=== PATIENT | male | born 1945 | race Caucasian/White ===

== ENCOUNTER 2017-06-05 02:51 | Inpatient (IN) | payer MEDICARE, OTHER ==
[2017-06-05] MEDS ORDERED: OXYCODONE-ACETAMINOPHEN 5-325 MG TABLET PO ONE (03:59)
--- NOTE | 2017-06-05 04:00 | ER Document Report ---
ED GI/ - General Chief Complaint: Flank Pain Stated Complaint: FLANK PAIN Time Seen by Provider: 06/05/17 03:54 Mode of Arrival: Ambulatory Information source: Patient Notes: Patient presents complaining of left flank pain that started yesterday. Patient states the pain radiates around to his left side of his abdomen. Patient states that yesterday the pain was intermittent but became constant today. Patient has a history kidney stones in the past and suspects the same today. Patient denies any fever. Patient does report nausea but denies any vomiting or diarrhea. TRAVEL OUTSIDE OF THE [place] IN LAST 30 DAYS: No - HPI Patient complains to provider of: Abdominal pain, Flank pain. No: Vomiting Onset: Yesterday Timing/Duration: Persistent, Worse Quality of pain: Sharp Pain Level: 5 Location: LLQ, Left flank Associated symptoms: Nausea. denies: Diarrhea, Dizzy, Urinary hesitancy, Urinary frequency, Urinary retention, Urinary urgency, Vomiting Exacerbated by: Denies Relieved by: Denies Similar symptoms previously: Yes Recently seen / treated by doctor: No - Related Data Allergies/Adverse Reactions: No Known Allergies Allergy (Unverified 06/05/17 07:29) Past Medical History - General Information source: Patient - Social History Smoking Status: Former Smoker Frequency of alcohol use: Occasional Drug Abuse: None Lives with: Spouse/Significant other Family History: Reviewed & Not Pertinent Patient has suicidal ideation: No Patient has homicidal ideation: No - Medical History Medical History: Other - Yet to be diagnosed mass right side of abdomen - Past Medical History Cardiac Medical History: Reports: Hx Peripheral Vascular Disease Endocrine Medical History: Reports: Hx Diabetes Mellitus Type 2 Renal/ Medical History: Reports: Hx Kidney Stones. Denies: Hx Peritoneal Dialysis Musculoskeltal Medical History: Reports Other - Chronic back pain Past Surgical History: Reports: Hx Orthopedic Surgery, Hx Vascular Surgery Review of Systems - Review of Systems Constitutional: No symptoms reported. denies: Fever, Recent illness EENT: No symptoms reported Cardiovascular: No symptoms reported Respiratory: No symptoms reported. denies: Cough, Short of breath Gastrointestinal: Abdominal pain, Nausea. denies: Diarrhea, Vomiting Genitourinary: Flank pain. denies: Dysuria, Hematuria Male Genitourinary: No symptoms reported Musculoskeletal: Back pain Skin: No symptoms reported Hematologic/Lymphatic: No symptoms reported Neurological/Psychological: No symptoms reported Physical Exam - Vital signs Vitals: Temp Pulse Resp BP Pulse Ox 97.7 F 66 22 H 163/90 H 98 06/05/17 02:52 06/05/17 02:52 06/05/17 02:52 06/05/17 02:52 06/05/17 02:52 - General General appearance: Appears well, Alert In distress: None - HEENT Head: Normocephalic Eyes: Normal Nasal: Normal Mouth/Lips: Normal Pharynx: Normal Neck: Normal. No: Lymphadenopathy - Respiratory Respiratory status: No respiratory distress Chest status: Nontender Breath sounds: Normal Chest palpation: Normal - Cardiovascular Rhythm: Regular Heart sounds: S1 appreciated, S2 appreciated Murmur: No - Abdominal Inspection: Obese Distension: No distension Bowel sounds: Normal Tenderness: Tender - LLQ pain. No: Guarding Organomegaly: No organomegaly - Back Back: CVA tenderness - left - Extremities General upper extremity: Normal inspection, Normal ROM General lower extremity: Normal inspection, Normal ROM - Neurological Neuro grossly intact: Yes Cognition: Normal Jm Coma Scale Eye Opening: Spontaneous [place] Coma Scale Verbal: Oriented [place] Coma Scale Motor: Obeys Commands Jm Coma Scale Total: 15 - Psychological Associated symptoms: Normal affect, Normal mood - Skin Skin Temperature: Warm Skin Moisture: Dry Skin Color: Normal Course - Re-evaluation Re-evalutation: 06/05/17 05:39 Patient complains of continued flank and abdominal pain, additional medication ordered. 06/05/17 06:[address] Wong who advises having patient admitted to the hospitalist services and starting patient on a broad-spectrum antibiotic and having patient remain n.p.o. as he will likely take patient to surgery later today. Consulted with Dr. Reid who agrees to accept patient for admission. Dr. Reid advises having patient admitted to telemetry unit and giving the patient a dose of Rocephin at this time. Reviewed patient's current vital signs with Dr. Reid. Patient's temperature 97.8, respiratory rate 18, heart rate 64, 95%, 174/71. Patient updated regarding plan of care and is agreeable at this time. - Vital Signs Vital signs: Temp Pulse Resp BP Pulse Ox 97.7 F 66 22 H 163/90 H 98 06/05/17 02:52 06/05/17 02:52 06/05/17 02:52 06/05/17 02:52 06/05/17 02:52 - Laboratory Result Diagrams: 06/05/17 03:30 06/05/17 03:30 Laboratory results interpreted by me: 06/05/17 06/05/17 06/05/17 03:30 03:30 05:16 WBC 12.8 H Seg Neutrophils % 89.0 H Lymphocytes % 6.9 L Absolute Neutrophils 11.4 H Sodium 136.6 L BUN 28 H Creatinine 1.56 H Est GFR ( Amer) 54 L Est GFR (Non-Af Amer) 44 L Glucose 558 H* Direct Bilirubin 0.5 H Alkaline Phosphatase 130 H Urine Glucose (UA) >=500 H Urine Blood LARGE H Labs- Entire Visit 06/05/17 06/05/17 06/05/17 03:30 03:30 05:16 WBC 12.8 H RBC 4.62 Hgb 13.8 Hct 41.4 MCV 90 MCH 29.8 MCHC 33.3 RDW 13.7 Plt Count 183 Seg Neutrophils % 89.0 H Lymphocytes % 6.9 L Monocytes % 3.8 Eosinophils % 0.0 Basophils % 0.3 Absolute Neutrophils 11.4 H Absolute Lymphocytes 0.9 Absolute Monocytes 0.5 Absolute Eosinophils 0.0 Absolute Basophils 0.0 Sodium 136.6 L Potassium 4.9 Chloride 98 Carbon Dioxide 23 Anion Gap 16 BUN 28 H Creatinine 1.56 H Est GFR ( Amer) 54 L Est GFR (Non-Af Amer) 44 L Glucose 558 H* Calcium 10.0 Total Bilirubin 0.5 Direct Bilirubin 0.5 H Neonat Total Bilirubin Not Reportable Neonat Direct Bilirubin Not Reportable Neonat Indirect Bili Not Reportable AST 21 ALT 43 Alkaline Phosphatase 130 H Total Protein 6.4 Albumin 3.9 Urine Color STRAW Urine Appearance CLEAR Urine pH 5.0 Ur Specific [place] 1.024 Urine Protein NEGATIVE Urine Glucose (UA) >=500 H Urine Ketones NEGATIVE Urine Blood LARGE H Urine Nitrite NEGATIVE Urine Bilirubin NEGATIVE Urine Urobilinogen NEGATIVE Ur Leukocyte Esterase NEGATIVE Urine WBC (Auto) 1 Urine RBC (Auto) 7 Squamous Epi Cells Auto <1 Urine Mucus (Auto) RARE Urine Ascorbic Acid NEGATIVE - Diagnostic Test Radiology reviewed: Reports reviewed Discharge - Discharge Clinical Impression: Ureteral stone, Flank pain, Hyperglycemia, right renal lesion Condition: Fair Disposition: ADMITTED INPATIENT Admitting Provider: Hospitalist Unit Admitted: Telemetry
[2017-06-05 04:09] LABS: ABSOLUTE LYMPHOCYTES (AUTO) 0.9 10^3/uL (0.5-4.7); ABSOLUTE MONOCYTES (AUTO) 0.5 10^3/uL (0.1-1.4); ABSOLUTE NEUT (AUTO) 11.4 10^3/uL (1.7-8.2); BASOPHILS % (AUTO) 0.3 % (0-2); HEMATOCRIT 41.4 % (37.9-51.0); HEMOGLOBIN 13.8 g/dL (13.5-17.0); LYMPHOCYTES % (AUTO) 6.9 % (13-45); MEAN CORPUSCULAR HEMOGLOBIN 29.8 pg (27.0-33.4); MEAN CORPUSCULAR HGB CONC 33.3 g/dL (32.0-36.0); MEAN CORPUSCULAR VOLUME 90 fl (80-97); MONOCYTES % (AUTO) 3.8 % (3-13); PLATELET COUNT 183 10^3/uL (150-450); RED BLOOD COUNT 4.62 10^6/uL (4.35-5.55); RED CELL DISTRIBUTION WIDTH 13.7 % (11.5-14.0); TOTAL CELLS COUNTED % (AUTO) 100 %; WHITE BLOOD COUNT 12.8 10^3/uL (4.0-10.5)
[2017-06-05 04:17] LABS: ALANINE AMINOTRANSFERASE 43 U/L (21-72); ALBUMIN 3.9 g/dL (3.5-5.0); ALKALINE PHOSPHATASE 130 U/L (38-126); ANION GAP 16 (5-19); ASPARTATE AMINO TRANSFERASE 21 U/L (17-59); BILIRUBIN,DIRECT 0.5 mg/dL (0.0-0.4); BILIRUBIN,TOTAL 0.5 mg/dL (0.2-1.3); BLOOD UREA NITROGEN 28 mg/dL (7-20); CARBON DIOXIDE 23 mmol/L (22-30); CHLORIDE 98 mmol/L (98-107); POTASSIUM 4.9 mmol/L (3.6-5.0); SODIUM 136.6 mmol/L (137-145); TOTAL PROTEIN 6.4 g/dL (6.3-8.2)
[2017-06-05] MEDS ORDERED: MORPHINE SULFATE 10 MG/ML INJ IV ONE ×2 (04:22→05:39)
[2017-06-05] MEDS ORDERED: ONDANSETRON HCL INJ/PF 4 MG/2 ML SDV IV ONE (04:22)
[2017-06-05 04:29] LABS: GLUCOSE 558 mg/dL (75-110)
--- NOTE | 2017-06-05 04:46 | RADIOLOGY REPORT (SQ) ---
EXAM DESCRIPTION: CT LTD RENAL STONE PROTOCOL ON CLINICAL HISTORY: 71 years Male, left flank, LLQ pain COMPARISON: December 24, 2015 TECHNIQUE: No contrast. Coronal and sagittal reformat. This exam was performed according to our departmental dose-optimization program, which includes automated exposure control, adjustment of the mA and/or kV according to patient size and/or use of iterative reconstruction technique. FINDINGS: 0.9 x 0.9 x 0.6 cm, 957 HU,, left mid ureteral stone at the L4 level with severe left hydroureter and moderate left hydronephrosis. Moderate left perinephric fat stranding. Additional bilateral nephrolithiasis measures up to 0.5 cm on the left. Indeterminate 2.1 cm, 49 HU exophytic rounded lesion at the upper pole of the right kidney probably due to a hemorrhagic cyst although other neoplastic processes cannot be excluded. Further evaluation with multiphase contrast CT or MRI recommended. Colonic diverticulosis. Small coronary arterial calcification. Moderate L5-S1 vacuum disc desiccation. Atherosclerosis. 0.3 cm degenerative L5 anterolisthesis. Moderate L5-S1 vacuum disc bulge-osteophyte complex with moderate bilateral L5 foraminal stenosis. Unenhanced inferior chest, abdominopelvic structures, and musculoskeleton appear otherwise grossly unremarkable. Impression: 1. A 0.9 cm left mid ureteral stone with moderate grade obstruction. 2. Indeterminate 2.1 cm right renal lesion; multiphase contrast CT or MRI recommended.
[2017-06-05] MEDS ORDERED: NORMAL SALINE 1000 ML 1,000 ML IV ONE (05:06)
[2017-06-05] MEDS ORDERED: INSULIN REG, HUMAN 100 UNIT/ML 3 ML VIAL (PYX) SUBCUT ONE (05:06)
[2017-06-05 05:41] LABS: APPEARANCE,URINE CLEAR; BILIRUBIN,URINE NEGATIVE (NEGATIVE); COLOR,URINE STRAW; GLUCOSE, URINE >=500 mg/dL (NEGATIVE); KETONES,URINE NEGATIVE (NEGATIVE); LEUKOCYTE ESTERASE,URINE NEGATIVE (NEGATIVE); NITRITE,URINE NEGATIVE (NEGATIVE); PROTEIN,URINE NEGATIVE (NEGATIVE); URINE SPECIFIC GRAVITY 1.024; UROBILINOGEN,URINE NEGATIVE mg/dL (<2.0)
[2017-06-05] MEDS ORDERED: CEFTRIAXONE INJ 1000 MG VIAL IV ONE (06:11)
[2017-06-05] MEDS ORDERED: INSULIN LISPRO 100 UNIT/ML 3 ML VIAL SUBCUT PRN (06:12)
[2017-06-05] MEDS ORDERED: ONDANSETRON HCL INJ/PF 4 MG/2 ML SDV IV PRN (06:12)
[2017-06-05] MEDS ORDERED: ACETAMINOPHEN 325 MG TABLET PO PRN (06:12)
[2017-06-05] MEDS ORDERED: DEXTROSE 40% GEL 15 GM TUBE PO PRN ×2 (06:12)
[2017-06-05] MEDS ORDERED: DEXTROSE 50%-WATER 25 GM/50 ML DISP.SYRIN IV PRN ×2 (06:12)
[2017-06-05] MEDS ORDERED: IPRATROPIUM/ALBUTEROL 0.5-2.5 MG/3 ML AMPUL NEB PRN (06:12)
[2017-06-05] MEDS ORDERED: MAG HYDROX/AL HYDROX/SIMETH SUSP 30 ML UDCUP PO PRN (06:12)
[2017-06-05] MEDS ORDERED: MAGNESIUM HYDROXIDE SUSP 30 ML UDCUP PO PRN (06:12)
[2017-06-05] MEDS ORDERED: GLUCAGON,HUMAN RECOMB 1 MG INJ IM PRN (06:12)
[2017-06-05] MEDS ORDERED: NORMAL SALINE 1000 ML 1,000 ML IV PRN ×2 (06:15→08:07)
[2017-06-05] MEDS ORDERED: HYDRALAZINE HCL INJ/PF 20 MG/1 ML SDV IV PRN (06:17)
[2017-06-05] MEDS ORDERED: KETOROLAC TROMETHAMINE INJ/PF 30 MG/1 ML SDV IV PRN (06:18)
--- NOTE | 2017-06-05 08:25 | PDOC H&P ---
History of Present Illness Admission Date/PCP: 06/05/17 06:21 DULCE HERNANDEZ MD Patient complains of: severe LLQ pain History of Present Illness: MEÑO DOUGLAS is a 71 year old male who presented to the ED with severe LLQ pain Pain is intermittent, severe radiates to left flank pain started 2 days ago , improved and recurred early this am Pain is similar to prior renal colics in past CT abdomen and pelvis performed in ED showed a 9 mm stone in left mid ureter and hydronephrosis Urology consult Dr Jasso was called and patient was admitted under Hospitalist service Past Medical History Cardiac Medical History: Reports: None Pulmonary Medical History: Reports: Sleep Apnea Endocrine Medical History: Reports: Diabetes Mellitus Type 2 Renal/ Medical History: Reports: Nephrolithiasis GI Medical History: Reports: Gastroesophageal Reflux Disease Musculoskeltal Medical History: Reports: Arthritis, Other - back pain carpal tunnel rt shoulder surgery Skin Medical History: Reports: None Psychiatric Medical History: Reports: None Hematology: Reports: None Infectious Medical History: Reports: None Past Surgical History Past Surgical History: Reports: Other - kidney stones Social History Information Source: Patient Lives with: Family Smoking Status: Former Smoker - stopped september 2016 Frequency of Alcohol Use: None Hx Recreational Drug Use: No Drugs: None - Advance Directive Resuscitation Status: Full Code Surrogate healthcare decision maker:: Mar Family History Parental Family History Reviewed: Yes - father cirrhosis Children Family History Reviewed: Yes Sibling(s) Family History Reviewed.: Yes - brother has kidney stones sister cancer Medication/Allergy Allergies/Adverse Reactions: No Known Allergies Allergy (Unverified 06/05/17 07:29) Review of Systems Constitutional: PRESENT: chills. ABSENT: as per HPI, anorexia, fatigue, fever(s ), headache(s), night sweats, weakness, weight gain, weight loss, other Respiratory: ABSENT: cough, hemoptysis Gastrointestinal: PRESENT: as per HPI, abdominal pain Genitourinary: ABSENT: dysuria, hematuria Musculoskeletal: ABSENT: joint swelling Neurological: ABSENT: abnormal gait, abnormal speech, confusion, dizziness, focal weakness, syncope Psychiatric: ABSENT: anxiety, depression, homidical ideation, suicidal ideation Endocrine: ABSENT: cold intolerance, heat intolerance, polydipsia, polyuria Hematologic/Lymphatic: ABSENT: easy bleeding, easy bruising Physical Exam Vital Signs: Temp Pulse Resp BP Pulse Ox 97.7 F 66 22 H 163/90 H 98 06/05/17 02:52 06/05/17 02:52 06/05/17 02:52 06/05/17 02:52 06/05/17 02:52 General appearance: PRESENT: mild distress - because of pain, well-developed, well-nourished Head exam: PRESENT: atraumatic, normocephalic Eye exam: PRESENT: conjunctiva pink, EOMI, PERRLA. ABSENT: scleral icterus Ear exam: PRESENT: normal external ear exam. ABSENT: bleeding, drainage, TM's normal bilaterally, other Mouth exam: PRESENT: moist, tongue midline Neck exam: ABSENT: carotid bruit, JVD, lymphadenopathy, thyromegaly Respiratory exam: PRESENT: clear to auscultation paula. ABSENT: rales, rhonchi, wheezes Cardiovascular exam: PRESENT: RRR. ABSENT: diastolic murmur, rubs, systolic murmur Pulses: PRESENT: normal dorsalis pedis pul Vascular exam: PRESENT: normal capillary refill GI/Abdominal exam: PRESENT: normal bowel sounds, soft, tenderness - left flank and LLQ. ABSENT: distended, guarding, mass, organolmegaly, rebound Rectal exam: PRESENT: deferred Extremities exam: PRESENT: full ROM. ABSENT: calf tenderness, clubbing, pedal edema Neurological exam: PRESENT: alert, awake, oriented to person, oriented to place , oriented to time, oriented to situation, CN II-XII grossly intact. ABSENT: motor sensory deficit Psychiatric exam: PRESENT: appropriate affect, normal mood. ABSENT: homicidal ideation, suicidal ideation Skin exam: PRESENT: dry, intact, warm. ABSENT: cyanosis, rash Results Laboratory Results: 06/05/17 06/05/17 06/05/17 03:30 03:30 05:16 WBC 12.8 H Hgb 13.8 Hct 41.4 Sodium 136.6 L Potassium 4.9 Chloride 98 Carbon Dioxide 23 BUN 28 H Creatinine 1.56 H Glucose 558 H* POC Glucose Urine pH 5.0 Ur Specific [place] 1.024 Urine Glucose (UA) >=500 H Urine Blood LARGE H 06/05/17 08:13 WBC Hgb Hct Sodium Potassium Chloride Carbon Dioxide BUN Creatinine Glucose POC Glucose 394 H Urine pH Ur Specific [place] Urine Glucose (UA) Urine Blood Assessment & Plan - Diagnosis (1) Renal colic on left side Is this a current diagnosis for this admission?: Yes Plan: treat pain with morphine Ceftriaxone IV urology consult Dr Jasso will be in - schedule for stent placement - (2) Hyperglycemia Is this a current diagnosis for this admission?: Yes Plan: intermittent doses regular insulin patient is NPO (3) Ureteral stone Is this a current diagnosis for this admission?: Yes (4) CKD stage 3 due to type 2 diabetes mellitus Is this a current diagnosis for this admission?: Yes Plan: hydrate - Time Time Spent with patient: admit patient to medical unit as inpatient Time Spent: 50 to 70 Minutes - Inpatient Certification Based on my medical assessment, after consideration of the patient's comorbidities, presenting symptoms, or acuity I expect that the services needed warrant INPATIENT care.: Yes I certify that my determination is in accordance with my understanding of Medicare's requirements for reasonable and necessary INPATIENT services [42 CFR 412.3e].: Yes Medical Necessity: Need For IV Fluids, Need for IV Antibiotics, Need for Surgery
[2017-06-05] MEDS ORDERED: INSULIN REG, HUMAN 100 UNIT/ML 3 ML VIAL (PYX) IV ONE ×2 (08:45→13:30)
--- NOTE | 2017-06-05 09:40 | EKG REPORT ---
SEVERITY:- ABNORMAL ECG - SINUS RHYTHM LAD, CONSIDER LEFT ANTERIOR FASCICULAR BLOCK EARLY PRECORDIAL TRANSITION, CONSIDER OLD TRUE POST. NV, CLINICAL CORRRELATION NEEDED : Confirmed by: Tu Crockett MD 05-Jun-2017 09:40:02
[2017-06-05] MEDS ORDERED: CEFTRIAXONE 1 GM/D5W RTU 1 GM/50 ML RTUPB IV SCH (10:00)
[2017-06-05] MEDS: CEFTRIAXONE SODIUM 1,000 MG in NORMAL SALINE 100 ML IV SCH (10:39)
[2017-06-05] MEDS: DOCUSATE SODIUM 100 MG CAPSULE PO SCH ×2 (10:39→17:02)
[2017-06-05] MEDS: HEPARIN SOD (PORCINE) 5,000 UNIT/ML 1 ML SYRINGE SUBCUT SCH ×2 (13:01→22:44)
[2017-06-05] MEDS: MORPHINE SULFATE 10 MG/ML INJ IV PRN ×2 (13:28→17:35)
[2017-06-05] MEDS ORDERED: MIDAZOLAM 2 MG/2 ML INJ ONE (16:06)
[2017-06-05] MEDS ORDERED: PROPOFOL INJ 200 MG/20 ML VIAL IV ONE (16:06)
[2017-06-05] MEDS ORDERED: FENTANYL CITRATE INJ/PF 100 MCG/2 ML AMPUL ONE (16:06)
--- NOTE | 2017-06-05 17:36 | RADIOLOGY REPORT (SQ) ---
EXAM DESCRIPTION: KUB/ABDOMEN (SINGLE VIEW); NO CHG FLUORO COMPLETED DATE/TIME: 06/05/2017 5:14 pm REASON FOR STUDY: CYSTOSCOPY LEFT RETROGRADE STENT PLACEMENT COMPARISON: CT abdomen pelvis 06/05/2017, KUB 12/24/2015 FLUOROSCOPY TIME: 12 seconds 4 digital images saved to PACS. TECHNIQUE: Intra-operative images acquired during surgical procedure to evaluate progress. NUMBER OF IMAGES: 4 cysto images LIMITATIONS: None. FINDINGS: Intra procedural imaging and fluoroscopy during left ureteral stone extraction and placeme nt of a double-J stent. Final film shows a stent in place over the left renal pelvis and proximal 2/ 3 of the ureter with left-sided upper hydroureter and mild hydronephrosis. Please see the operative report for further details IMPRESSION: Intra procedural imaging and fluoro during left double-J stent placement COMMENT: Quality ID [id number]: Final reports for procedures using fluoroscopy that document radiation exp osure indices, or exposure time and number of fluorographic images (if radiation exposure indices are not available) Please consult full operative report of the attending physician for description of the procedure. TECHNICAL DOCUMENTATION: JOB ID: [id number] [email or web address]- All Rights Reserved Reading location - IP/workstation name: [email or web address]
--- NOTE | 2017-06-05 17:36 | RADIOLOGY REPORT (SQ) ---
EXAM DESCRIPTION: KUB/ABDOMEN (SINGLE VIEW); NO CHG FLUORO COMPLETED DATE/TIME: 06/05/2017 5:14 pm REASON FOR STUDY: CYSTOSCOPY LEFT RETROGRADE STENT PLACEMENT COMPARISON: CT abdomen pelvis 06/05/2017, KUB 12/24/2015 FLUOROSCOPY TIME: 12 seconds 4 digital images saved to PACS. TECHNIQUE: Intra-operative images acquired during surgical procedure to evaluate progress. NUMBER OF IMAGES: 4 cysto images LIMITATIONS: None. FINDINGS: Intra procedural imaging and fluoroscopy during left ureteral stone extraction and placeme nt of a double-J stent. Final film shows a stent in place over the left renal pelvis and proximal 2/ 3 of the ureter with left-sided upper hydroureter and mild hydronephrosis. Please see the operative report for further details IMPRESSION: Intra procedural imaging and fluoro during left double-J stent placement COMMENT: Quality ID [id number]: Final reports for procedures using fluoroscopy that document radiation exp osure indices, or exposure time and number of fluorographic images (if radiation exposure indices are not available) Please consult full operative report of the attending physician for description of the procedure. TECHNICAL DOCUMENTATION: JOB ID: [id number] [employer]- All Rights Reserved Reading location - IP/workstation name: [email or web address]
[2017-06-05] MEDS ORDERED: MORPHINE SULFATE 10 MG/ML INJ ONE (17:53)
[2017-06-05] MEDS: INSULIN REG, HUMAN 100 UNIT/ML 3 ML VIAL (PYX) SUBCUT PRN ×2 (19:00→22:52)
[2017-06-05] MEDS ORDERED: TAMSULOSIN HCL 0.4 MG CAP.SR.24H PO ONE (23:00)
[2017-06-06 04:49] LABS: ABSOLUTE BASOPHILS # (AUTO) 0.1 10^3/uL (0.0-0.2); ABSOLUTE EOSINOPHILS # (AUTO) 0.1 10^3/uL (0.0-0.6); ABSOLUTE LYMPHOCYTES (AUTO) 1.6 10^3/uL (0.5-4.7); ABSOLUTE MONOCYTES (AUTO) 0.9 10^3/uL (0.1-1.4); ABSOLUTE NEUT (AUTO) 6.5 10^3/uL (1.7-8.2); BASOPHILS % (AUTO) 0.6 % (0-2); EOSINOPHILS % (AUTO) 1.5 % (0-6); HEMATOCRIT 35.8 % (37.9-51.0); HEMOGLOBIN 12.1 g/dL (13.5-17.0); LYMPHOCYTES % (AUTO) 17.1 % (13-45); MEAN CORPUSCULAR HGB CONC 33.7 g/dL (32.0-36.0); MEAN CORPUSCULAR VOLUME 89 fl (80-97); MONOCYTES % (AUTO) 9.4 % (3-13); PLATELET COUNT 159 10^3/uL (150-450); RED BLOOD COUNT 4.03 10^6/uL (4.35-5.55); SEGMENTED NEUTROPHILS % (AUTO) 71.4 % (42-78); TOTAL CELLS COUNTED % (AUTO) 100 %; WHITE BLOOD COUNT 9.1 10^3/uL (4.0-10.5)
[2017-06-06 05:20] LABS: ANION GAP 9 (5-19); BLOOD UREA NITROGEN 23 mg/dL (7-20); CARBON DIOXIDE 27 mmol/L (22-30); CHLORIDE 105 mmol/L (98-107); GLUCOSE 231 mg/dL (75-110); POTASSIUM 4.2 mmol/L (3.6-5.0); SODIUM 140.7 mmol/L (137-145)
[2017-06-06] MEDS: HEPARIN SOD (PORCINE) 5,000 UNIT/ML 1 ML SYRINGE SUBCUT SCH ×2 (05:37→13:02)
[2017-06-06] MEDS: INSULIN REG, HUMAN 100 UNIT/ML 3 ML VIAL (PYX) SUBCUT PRN ×2 (07:29→11:42)
[2017-06-06] MEDS: CEFTRIAXONE SODIUM 1,000 MG in NORMAL SALINE 100 ML IV SCH (09:53)
[2017-06-06] MEDS: DOCUSATE SODIUM 100 MG CAPSULE PO SCH (09:54)
[2017-06-06] MEDS ORDERED: TAMSULOSIN HCL 0.4 MG CAP.SR.24H PO SCH ×2 (10:00→18:00)
[2017-06-06 14:19] VITALS: BP 145/56
--- NOTE | 2017-06-06 16:59 | PDOC DISCHARGE SUMMARY ---
General - Admit/Disc Date/PCP Admission Date/Primary Care Provider: 06/05/17 06:21 DULCE HERNANDEZ MD UROLOGY DR WONG Discharge Date: 06/06/17 - Discharge Diagnosis (1) Renal colic on left side Is this a current diagnosis for this admission?: Yes (2) Hyperglycemia Is this a current diagnosis for this admission?: Yes (3) Ureteral stone Is this a current diagnosis for this admission?: Yes (4) CKD stage 3 due to type 2 diabetes mellitus Is this a current diagnosis for this admission?: Yes - Additional Information Resuscitation Status: Full Code Discharge Diet: Diabetic Discharge Activity: Activity As Tolerated Prescriptions: Cephalexin Monohydrate [Keflex 500 mg Capsule] 500 mg PO TID 15 Days #45 capsule Metformin HCl [Glucophage 500 mg Tablet] 500 mg PO BIDACBS #60 tab Home Medications: Calcium Carbonate/Vitamin D3 [Calcium 500 mg Chewable Tablet] 500 mg PO BID Clopidogrel Bisulfate [Plavix 75 mg Tablet] 75 mg PO DAILY 06/05/17 Ferrous Sulfate [Feosol 325 mg Tablet] 325 mg PO BID 06/05/17 Tamsulosin HCl [Flomax 0.4 mg Cap.sr] 0.4 mg PO DAILY 06/05/17 Telmisartan/Hydrochlorothiazid [Micardis HCT 40-12.5 mg Tablet] 1 tab PO DAILY 06/05/17 Cephalexin Monohydrate [Keflex 500 mg Capsule] 500 mg PO TID 15 Days #45 capsule 06/06/17 Exenatide Microspheres [Bydureon Pen] 2 mg SQ ASDIR 06/06/17 Metformin HCl [Glucophage 500 mg Tablet] 500 mg PO BIDACBS #60 tab 06/06/17 History of Present Illness History of Present Illness: MEÑO DOUGLAS is a 71 year old male who presented to the ED with severe LLQ pain Pain is intermittent, severe radiates to left flank pain started 2 days ago , improved and recurred early this am Pain is similar to prior renal colics in past CT abdomen and pelvis performed in ED showed a 9 mm stone in left mid ureter and hydronephrosis Urology consult Dr Jasso was called and patient was admitted under Hospitalist service Hospital Course Hospital Course: Patient is a 71-year-old male who was admitted his left renal colic patient had 9 mm stone in the left mid ureter and marked left hydronephrosis Pain was extremely severe He did not have any signs of sepsis but blood sugar was over 500 1 left renal colic Urology consult was obtained with Dr. Wong who evaluated the patient Patient was promptly scheduled for the OR and a left ureteral stent was placed The patient tolerated the procedure well and the pain was greatly improved 2 hyperglycemia patient has known type 2 diabetes usually well controlled diabetes is controlled with Byetta injection once a week Patient's blood sugar was 500 on admission; after surgery it was around 200 We discharged him with a prescription for metformin 500 mg twice a day Patient is to follow-up closely with his primary care physician and deputy administrator to reevaluate his treatment 3 hypertension was controlled 4 CKD stage III stable Physical Exam Vital Signs: Temp Pulse Resp BP Pulse Ox 97.7 F 61 20 145/56 H 95 06/06/17 14:10 06/06/17 14:10 06/06/17 14:10 06/06/17 14:10 06/06/17 14:10 Intake & Output 06/05/17 06/06/17 06/07/17 00:59 00:59 00:59 Intake Total 3668 3268 Balance 3668 3268 Weight 107 kg General appearance: PRESENT: no acute distress Head exam: PRESENT: atraumatic, normocephalic Eye exam: PRESENT: conjunctiva pink, EOMI, PERRLA. ABSENT: scleral icterus Respiratory exam: PRESENT: clear to auscultation paula. ABSENT: rales, rhonchi, wheezes Cardiovascular exam: PRESENT: bradycardia Pulses: PRESENT: normal dorsalis pedis pul GI/Abdominal exam: PRESENT: normal bowel sounds, soft. ABSENT: distended, guarding, mass, organolmegaly, rebound, tenderness Extremities exam: PRESENT: full ROM. ABSENT: calf tenderness - He has, clubbing , pedal edema Neurological exam: PRESENT: alert, awake, CN II-XII grossly intact Results Laboratory Results: 06/06/17 03:35 06/06/17 03:35 06/06/17 06/06/17 03:35 03:35 WBC 9.1 RBC 4.03 L Hgb 12.1 L Hct 35.8 L MCV 89 MCH 30.0 MCHC 33.7 RDW 14.0 Plt Count 159 Seg Neutrophils % 71.4 Lymphocytes % 17.1 Monocytes % 9.4 Eosinophils % 1.5 Basophils % 0.6 Absolute Neutrophils 6.5 Absolute Lymphocytes 1.6 Absolute Monocytes 0.9 Absolute Eosinophils 0.1 Absolute Basophils 0.1 Sodium 140.7 Potassium 4.2 Chloride 105 Carbon Dioxide 27 Anion Gap 9 BUN 23 H Creatinine 1.32 H Est GFR ( Amer) > 60 Est GFR (Non-Af Amer) 54 L Glucose 231 H Calcium 9.0 Impressions: Fluoroscopy 06/05/17 00:00 IMPRESSION: Intra procedural imaging and fluoro during left double-J stent placement KUB X-Ray 06/05/17 00:00 IMPRESSION: Intra procedural imaging and fluoro during left double-J stent placement Qualifiers - * PATEINT BEING DISCHARGED WITH ANY OF THE FOLLOWING DIAGNOSIS?: No - His blood pressure has improved
--- NOTE | 2017-06-22 12:18 | Operative Report ---
Operative Report DATE OF SURGERY: 06/05/17 PREOPERATIVE DIAGNOSIS: left hydronephrosis due to midureteral stone obstructing POSTOPERATIVE DIAGNOSIS: same OPERATION: cystoscopy left retrograde and insertion of double-J catheter on the left side catheter was 26 [place] 4.8 SURGEON: DAVID HILL ANESTHESIA: GA TISSUE REMOVED OR ALTERED: None COMPLICATIONS: None ESTIMATED BLOOD LOSS: 0 INTRAOPERATIVE FINDINGS: Enlargement of the prostate trabeculated bladder obstructed left kidney and left hydronephrosis PROCEDURE: With the patient in the supine position after the induction of general anesthesia the whole area was prepped and scrubbed in the usual fashion in the lithotomy position. After that draping was done then 21 cystoscope sheath was inserted into the urethra under direct vision the urethra was normal bladder entered it was trabeculated left orifice was identified it was entered left throat retrograde was done and #5 urethral catheter was inserted however because the stone was obstructed we mixed contrast with some K-Y jelly and inserted the guidewire all the way up to the hydronephrotic kidney. After that #26 length 4.8 [place] double-J catheter was inserted over a guidewire. After that the bladder was inspected prostate was mildly enlarged in the medial lobe. The rest of the urethra was normal after that the procedure rectal exam was done and it was normal patient tolerated procedure well and left the OR in good condition thank you
== END 2017-06-06 14:10 | disposition home or self-care (01) | DRG 694 ==
LOC: ER 02:51 → EH 06:21 → 5 09:40
PROVIDERS: ADMIT Internal Medicine; ATTEND Internal Medicine
PROC: 0T764DZ Dilation of Right Ureter with Intraluminal Device, Percutaneous Endoscopic Approach (ICD-10-PCS; principal; 2017-06-05 14:00)
DX: N13.2 Hydronephrosis with renal and ureteral calculous obstruction (principal); E11.65 Type 2 diabetes mellitus with hyperglycemia; M19.90 Unspecified osteoarthritis, unspecified site; K21.9 Gastro-esophageal reflux disease without esophagitis; E11.22 Type 2 diabetes mellitus with diabetic chronic kidney disease; N18.3 Chronic kidney disease, stage 3 (moderate); N40.0 Benign prostatic hyperplasia without lower urinary tract symptoms; Z87.442 Personal history of urinary calculi; Z87.891 Personal history of nicotine dependence; Z79.4 Long term (current) use of insulin
CPT/HCPCS: 36415; 74018; 76380; 80048; 80053; 81001; 82962; 85025; 87040; 87086; 910; 93005; 93010; 96374; 96375; 96376; 99285; C1758; J0696; J1815; J2250; J2270; J2405; J2704; J3010; J7030

== ENCOUNTER → 2017-06-28 | Outpatient (CLI) | payer MEDICARE, OTHER ==
--- NOTE | 2017-06-29 17:00 | RADIOLOGY REPORT (SQ) ---
EXAM DESCRIPTION: KUB/ABDOMEN (SINGLE VIEW) COMPLETED DATE/TIME: 06/28/2017 9:23 am REASON FOR STUDY: URETERAL STONE N20.1 CALCULUS OF URETER COMPARISON: 12/24/2015 NUMBER OF VIEWS: One view. TECHNIQUE: Supine radiographic image of the abdomen acquired. LIMITATIONS: None. FINDINGS: BOWEL GAS PATTERN: Normal bowel gas pattern. No dilated loops. CALCIFICATIONS: Bilateral renal calculi, stable findings. The largest calculus is again identified overlying the lower pole of the left kidney and measures 7.0 mm. In the left hemipelvis, near the junction of the sacrum-coccyx, a 7 mm calculus is identified which w as not present on the prior study. Considerations for this finding includes a distal left ureteral c alculus. SOFT TISSUES: No gross mass or suggestion of organomegaly. HARDWARE: Interval placement of left ureteral stent, in expected location. BONES: No acute fracture. No worrisome bone lesions. OTHER: Abdominal aortic and pelvic vascular calcifications. Stable phleboliths in the pelvic region . IMPRESSION: 1 Stable bilateral renal calculi since the prior study dated 12/24/2015. 2. Interval placement of left ureteral stent. 3. A 7 mm calculus in the distal left hemipelvis adjacent to the ureteral stent, new finding since prior study. Considerations for this finding includes a distal left ureteral calculus. TECHNICAL DOCUMENTATION: JOB ID: [id number] [employer]- All Rights Reserved Reading location - IP/workstation name: [email or web address]
== END ==
LOC: RAD 09:00
PROVIDERS: ATTEND Urology
DX: N20.1 Calculus of ureter (principal)
CPT/HCPCS: 74018

== ENCOUNTER 2017-10-26 10:53 | Emergency (ER) | payer MEDICARE, OTHER ==
--- NOTE | 2017-10-26 11:46 | ER Document Report ---
ED Extremity Problem, Lower - General Chief Complaint: Foot Pain Stated Complaint: SWOLLEN LEFT FOOT Time Seen by Provider: 10/26/17 11:30 Mode of Arrival: Ambulatory Information source: Patient Notes: 72-year-old male presents to ED for bilateral foot pain. States 9 days ago he was riding his lawn tractor when he went to pull it up to a trailer and went to far catching his feet between the trailer and the tractor. He states he was pinned there until he got his bearing and backed the tractor up. He states he went to the primary doctor and they gave him some cream for pain did not have the foot x-rayed. He states the foot continues to be painful swollen and bruised. He states he needs to find out what is going on with his foot as they are continued to swell and be painful. TRAVEL OUTSIDE OF THE [place] IN LAST 30 DAYS: No - HPI Patient complains to provider of: Injury, Pain, Swelling Location: Foot - Bilateral Occurred: Other Where: Home - 9 days ago, Outdoors Onset/Duration: Sudden, Persistent Quality of pain: Pressure, Throbbing Severity: Moderate Pain Level: 4 Context: Other Recent injury: Yes - See above Associated symptoms: Painful ambulation Exacerbated by: Hanging down, Movement, Walking Relieved by: Elevation, Ice, Rest - Related Data Allergies/Adverse Reactions: No Known Allergies Allergy (Verified 10/26/17 10:55) Past Medical History - General Information source: Patient - Social History Smoking Status: Former Smoker Cigarette use (# per day): No Chew tobacco use (# tins/day): No Smoking Education Provided: No Frequency of alcohol use: None Drug Abuse: None Lives with: Family Family History: Reviewed & Not Pertinent Patient has suicidal ideation: No Patient has homicidal ideation: No - Past Medical History Cardiac Medical History: Reports: Hx Peripheral Vascular Disease Pulmonary Medical History: Reports: Hx Sleep Apnea EENT Medical History: Reports: None Neurological Medical History: Reports: None Endocrine Medical History: Reports: Hx Diabetes Mellitus Type 2 Renal/ Medical History: Reports: Hx End Stage Renal Disease, Hx Kidney Stones Malignancy Medical History: Reports None GI Medical History: Reports: Hx Gastroesophageal Reflux Disease Musculoskeletal Medical History: Reports Hx Arthritis, Reports Hx Musculoskeletal Deformity, Reports Hx Musculoskeletal Trauma Skin Medical History: Reports None Psychiatric Medical History: Reports: None Infectious Medical History: Reports: None Past Surgical History: Reports: Hx Kidney (Renal Surgery) - Multiple, Hx Orthopedic Surgery - Carpal tunnel concern, Hx Vascular Surgery, Other - kidney stones - Immunizations Immunizations up to date: Yes Hx Diphtheria, Pertussis, Tetanus Vaccination: Yes Review of Systems - Review of Systems Constitutional: No symptoms reported EENT: No symptoms reported Cardiovascular: No symptoms reported Respiratory: No symptoms reported Gastrointestinal: No symptoms reported Genitourinary: No symptoms reported Male Genitourinary: No symptoms reported Musculoskeletal: No symptoms reported Skin: No symptoms reported Hematologic/Lymphatic: No symptoms reported Neurological/Psychological: No symptoms reported -: Yes All other systems reviewed and negative Physical Exam - Vital signs Vitals: Temp Pulse Resp BP Pulse Ox 97.4 F 75 20 172/70 H 98 10/26/17 11:12 10/26/17 11:12 10/26/17 11:12 10/26/17 11:12 10/26/17 11:12 Interpretation: Normal - General General appearance: Appears well, Alert - HEENT Head: Normocephalic, Atraumatic Eyes: Normal Pupils: PERRL - Respiratory Respiratory status: No respiratory distress Chest status: Nontender Breath sounds: Normal Chest palpation: Normal - Cardiovascular Rhythm: Regular Heart sounds: Normal auscultation Murmur: No - Abdominal Inspection: Normal Distension: No distension Bowel sounds: Normal Tenderness: Nontender Organomegaly: No organomegaly - Back Back: Normal, Nontender - Extremities General upper extremity: Normal inspection, Nontender, Normal color, Normal ROM , Normal temperature General lower extremity: Normal weight bearing. No: Teja's sign Foot: Tender, Ecchymosis, Edema, Metatarsal compress. pain, No evidence of FB. No: Abrasion, Deformity, Instability, Laceration, Nail injury, Navicular tenderness, Puncture wound, Tender 5th metatarsal - Neurological Neuro grossly intact: Yes Cognition: Normal Orientation: AAOx4 Jm Coma Scale Eye Opening: Spontaneous [place] Coma Scale Verbal: Oriented Jm Coma Scale Motor: Obeys Commands Jm Coma Scale Total: 15 Speech: Normal Motor strength normal: LUE, RUE, LLE, RLE Sensory: Normal - Psychological Associated symptoms: Normal affect, Normal mood - Skin Skin Temperature: Warm Skin Moisture: Dry Skin Color: Normal Course - Re-evaluation Re-evalutation: 10/26/17 22:25 X-ray discussed with patient and written report of x-ray given the patient to follow-up with orthopedics. Patient was discharged home and instructed to stay off and on more until his foot heals. - Vital Signs Vital signs: Temp Pulse Resp BP Pulse Ox 97.5 F 64 18 148/64 H 99 10/26/17 13:12 10/26/17 13:12 10/26/17 13:12 10/26/17 13:12 10/26/17 13:12 - Diagnostic Test Radiology reviewed: Image reviewed, Reports reviewed Procedures - Immobilization Left Foot Time completed: 13:09 Pre-Proc Neuro Vasc Exam: Normal Immobilizer type: Post-op shoe Performed by: PCT Post-Proc Neuro Vasc Exam: Normal Alignment checked and good: Yes Discharge - Discharge Clinical Impression: avulsion fracture 5th metatarsal Condition: Stable Disposition: HOME, SELF-CARE Additional Instructions: Foot Fracture You have a fracture in one of the small bones of the foot. Some foot fractures are very serious, while others are no more serious than a sprain. This fracture should heal well, but requires protection for proper healing. Initially, you should elevate and ice pack the foot, and bear no weight on it. Usually, a cast or a walking boot will be required. Some milder foot fractures can be managed with temporary rest, then a firm shoe. Your physician has determined the seriousness of your foot fracture and has outlined the treatment plan for you. You should follow up as instructed to insure that the fracture heals without complications. Call the doctor or return at once if pain or swelling becomes severe, if a re-injury occurs, or if any part of the foot becomes numb. Post-Op Shoe You are to use a "post-op shoe," sometimes also called a "bunnion shoe." This shoe helps protect minor fractures, sprains, and other injuries of the toes or foot. You may remove the shoe for bathing. Walk carefully. If you're feeling pain, put less weight on the foot, take smaller steps, or use a cane. If you have a new injury, you may need to use crutches for the first couple of days. If pain still prevents walking after a few days, contact the doctor. If there's unexpected pain in your foot, if blisters or sore spots develop , or if the shoe is physically coming apart, return at once. Remember that you' re welcome to come in at any time to have the fit of the shoe checked and adjusted. ICE & ELEVATION: Apply ice packs frequently against the painful area. Many different schedules are recommended, such as "20 minutes on, 20 minutes off" or "one hour ice, two hours rest." If you need to work, you may need to go longer between ice treatments. You should plan to have the area ice packed AT LEAST one- fourth of the time. The ice should be applied over the wrap, tape, or splint, or over a layer of cloth -- not directly against the skin. Some ice bags have a built-in cloth and can be put directly on the skin. Your injured part should be elevated as much as possible over the next 48 hours. Try to keep the injury above the level of the heart. Avoid use of the injured area. Elevation and rest will decrease the swelling. FOLLOW-UP CARE: If you have been referred to a physician for follow-up care, call the physician s office for an appointment as you were instructed or within the next two days. If you experience worsening or a significant change in your symptoms, notify the physician immediately or return to the Emergency Department at any time for re-evaluation. Forms: Elevated Blood Pressure Referrals: DULCE HERNANDEZ MD [Primary Care Provider] - Follow up as needed
--- NOTE | 2017-10-26 12:44 | RADIOLOGY REPORT (SQ) ---
EXAM DESCRIPTION: FOOT LEFT COMPLETE COMPLETED DATE/TIME: 10/26/2017 12:22 pm REASON FOR STUDY: pain injury swelling bruising injury 10 days ago with continued pain, lateral left foot COMPARISON: None. NUMBER OF VIEWS: Three views. TECHNIQUE: AP, lateral and oblique radiographic images acquired of the left foot. LIMITATIONS: None. FINDINGS: MINERALIZATION: Normal. BONES: There is minimal periosteal new bone along the lateral edge base 5th metatarsal. This could r epresent a healing avulsion injury. This is best shown on the oblique view of the foot, marked with an arrow. Remainder of the bones of the left foot are otherwise unremarkable aside from a small plantar calcane al spur. JOINTS: No effusions. SOFT TISSUES: Mild diffuse forefoot soft tissue swelling. OTHER: No other significant finding. IMPRESSION: Minimal periosteal new bone growth along the lateral base left 5th metatarsal. This cou ld represent stress injury or a subacute avulsion injury. TECHNICAL DOCUMENTATION: JOB ID: [id number] [employer]- All Rights Reserved Reading location - IP/workstation name: [email or web address]
--- NOTE | 2017-10-26 12:45 | RADIOLOGY REPORT (SQ) ---
EXAM DESCRIPTION: FOOT RIGHT COMPLETE COMPLETED DATE/TIME: 10/26/2017 12:22 pm REASON FOR STUDY: pain injury swelling bruising injury 10 days ago, continued pain COMPARISON: None. NUMBER OF VIEWS: Three views. TECHNIQUE: AP, lateral and oblique radiographic images acquired of the right foot. LIMITATIONS: None. FINDINGS: MINERALIZATION: Normal. BONES: No acute fracture or dislocation. No worrisome bone lesions. Small plantar and dorsal calcan eal spurs are present. JOINTS: No effusions. SOFT TISSUES: No soft tissue swelling. No foreign body. OTHER: No other significant finding. IMPRESSION: NEGATIVE STUDY OF THE RIGHT FOOT. NO RADIOGRAPHIC EVIDENCE OF ACUTE INJURY. TECHNICAL DOCUMENTATION: JOB ID: [id number] [employer]- All Rights Reserved Reading location - IP/workstation name: [email or web address]
[2017-10-26 13:13] VITALS: BP 148/64
== END 2017-10-26 13:15 | disposition home or self-care (01) ==
LOC: ER 10:53
DX: S92.909A Unspecified fracture of unspecified foot, initial encounter for closed fracture (principal); M79.671 Pain in right foot; M79.672 Pain in left foot; W23.0XXA Caught, crushed, jammed, or pinched between moving objects, initial encounter; Y93.89 Activity, other specified; Y92.009 Unspecified place in unspecified non-institutional (private) residence as the place of occurrence of the external cause; E11.51 Type 2 diabetes mellitus with diabetic peripheral angiopathy without gangrene; Z87.891 Personal history of nicotine dependence
CPT/HCPCS: 99283

== ENCOUNTER → 2019-05-23 | Outpatient (CLI) | payer MEDICARE, OTHER ==
[2019-05-23 10:40] LABS: ABSOLUTE BASOPHILS # (AUTO) 0.1 10^3/uL (0.0-0.2); ABSOLUTE EOSINOPHILS # (AUTO) 0.2 10^3/uL (0.0-0.6); ABSOLUTE LYMPHOCYTES (AUTO) 1.3 10^3/uL (0.5-4.7); ABSOLUTE MONOCYTES (AUTO) 0.8 10^3/uL (0.1-1.4); ABSOLUTE NEUT (AUTO) 4.5 10^3/uL (1.7-8.2); BASOPHILS % (AUTO) 0.8 % (0-2); EOSINOPHILS % (AUTO) 3.1 % (0-6); HEMATOCRIT 40.5 % (37.9-51.0); HEMOGLOBIN 13.2 g/dL (13.5-17.0); LYMPHOCYTES % (AUTO) 19.1 % (13-45); MEAN CORPUSCULAR HEMOGLOBIN 28.6 pg (27.0-33.4); MEAN CORPUSCULAR HGB CONC 32.7 g/dL (32.0-36.0); MEAN CORPUSCULAR VOLUME 88 fl (80-97); MONOCYTES % (AUTO) 11.5 % (3-13); PLATELET COUNT 216 10^3/uL (150-450); RED BLOOD COUNT 4.63 10^6/uL (4.35-5.55); RED CELL DISTRIBUTION WIDTH 14.5 % (11.5-14.0); SEGMENTED NEUTROPHILS % (AUTO) 65.5 % (42-78); TOTAL CELLS COUNTED % (AUTO) 100 %; WHITE BLOOD COUNT 6.9 10^3/uL (4.0-10.5)
[2019-05-23 10:47] LABS: APPEARANCE,URINE CLEAR; BILIRUBIN,URINE NEGATIVE (NEGATIVE); COLOR,URINE YELLOW; GLUCOSE, URINE NEGATIVE (NEGATIVE); KETONES,URINE NEGATIVE (NEGATIVE); LEUKOCYTE ESTERASE,URINE NEGATIVE (NEGATIVE); NITRITE,URINE NEGATIVE (NEGATIVE); PROTEIN,URINE NEGATIVE (NEGATIVE); URINE SPECIFIC GRAVITY 1.019; UROBILINOGEN,URINE NEGATIVE mg/dL (<2.0)
[2019-05-23 11:09] LABS: ALBUMIN 3.7 g/dL (3.5-5.0); ANION GAP 8 (5-19); BLOOD UREA NITROGEN 32 mg/dL (7-20); CALCIUM 9.3 mg/dL (8.4-10.2); CARBON DIOXIDE 26 mmol/L (22-30); CHLORIDE 104 mmol/L (98-107); GLUCOSE 199 mg/dL (75-110); PHOSPHORUS 4.2 mg/dL (2.5-4.5); POTASSIUM 5.5 mmol/L (3.6-5.0)
[2019-05-24 07:37] LABS: CREATININE URINE 121.2 mg/dL (Not Estab.); MICROALBUMIN URINE 9.8 ug/mL (Not Estab.)
== END ==
LOC: OD 10:10
PROVIDERS: ATTEND Internal Medicine Nephrology
DX: E11.22 Type 2 diabetes mellitus with diabetic chronic kidney disease (principal); I12.9 Hypertensive chronic kidney disease with stage 1 through stage 4 chronic kidney disease, or unspecified chronic kidney disease; N18.3 Chronic kidney disease, stage 3 (moderate); D63.1 Anemia in chronic kidney disease
CPT/HCPCS: 36415; 80069; 81001; 82043; 82306; 82570; 83970; 85025

== ENCOUNTER → 2019-06-01 | Outpatient (CLI) | payer MEDICARE, OTHER | LOC: OD 09:45 | PROVIDERS: ATTEND Internal Medicine Nephrology | DX: I12.9 Hypertensive chronic kidney disease with stage 1 through stage 4 chronic kidney disease, or unspecified chronic kidney disease (principal); N18.3 Chronic kidney disease, stage 3 (moderate); E11.22 Type 2 diabetes mellitus with diabetic chronic kidney disease; D63.1 Anemia in chronic kidney disease | CPT/HCPCS: 36415; 84132 ==